=== PATIENT | female | born 1970 | race Hispanic/Latino ===

== ENCOUNTER 2023-01-16 19:04 | Emergency (ER) | payer OTHER, SELFPAY ==
[2023-01-16 19:29] VITALS: BP 118/76; PULSE 83; RESP 16; TEMP 36.4; O2SAT 98
--- NOTE | 2023-01-16 19:55 | ED.DENTAL ---
HPI - Dental/Oral General Chief complaint: Dental/Oral Stated complaint: Dental/Diabetic Problems Time Seen by Provider: 01/16/23 19:55 Source: patient Mode of arrival: ambulatory Limitations: no limitations History of Present Illness HPI Narrative: 52-year-old female presents with complaint of dental pain with eating. Called her primary care physician regarding symptoms and was told to have her teeth checked, might need antibiotic for infection. Patient reports she took an ibuprofen prior to arrival and pain has improved. States that she has not seen a dentist in several years. Patient is visiting here from out of town. All systems reviewed and negative except as noted above. Related Data Home Medications Medication Instructions Recorded Confirmed atorvastatin 20 mg tablet 20 mg PO DAILY 01/16/23 01/16/23 dulaglutide 1.5 mg/0.5 mL 1.5 mg subcut DIRECTED 01/16/23 01/16/23 subcutaneous pen injector (Trulicity) metformin 500 mg tablet,extended 500 mg PO BID 01/16/23 01/16/23 release 24 hr naproxen 500 mg tablet 500 mg PO DIRECTED 01/16/23 01/16/23 pantoprazole 40 mg tablet,delayed 40 mg PO DAILY 01/16/23 01/16/23 release Review of Systems Review of Systems: CONSTITUTIONAL: Denies fever, chills, or sweats. EYES: Denies visual changes, redness, or discharge. ENT: Denies rhinorrhea, congestion, sore throat, or otalgia. Reports dental pain. CARDIOVASCULAR: Denies chest pain, palpitations, or edema. RESPIRATORY: Denies cough or dyspnea. GASTROINTESTINAL: Denies abdominal pain, nausea, vomiting, or diarrhea. GENITOURINARY: Denies dysuria or hematuria. SKIN: Denies rash or itching. MUSCULOSKELETAL: Denies back pain, joint pain, or myalgia. NEUROLOGIC: Denies headache, numbness, or weakness. PSYCHIATRIC: Denies anxiety or depression. All other systems reviewed are negative, except as documented in HPI. PMFSH Comments At time of signature, agree with nursing past medical, surgical, social and family history. There is no relevant family history pertinent to the presenting complaint. Exam Narrative: GENERAL: This is a well-nourished, well-developed patient, in no apparent distress. HEAD: normocephalic, atraumatic. EYES: PERRL. Sclera clear/white. Vision is grossly intact. EARS: External ears normal NOSE: External nose normal MOUTH: several decayed teeth, broken teeth, dental caries NECK: Neck supple, non-tender without lymphadenopathy, masses or thyromegaly. CARDIOVASCULAR: Regular rate and rhythm without murmurs, gallops, or rubs. RESPIRATORY: Clear to auscultation. Breath sounds equal bilaterally. No wheezes, rales, or rhonchi. SKIN: warm, Dry, intact with no suspicious lesions or rash, good texture and turgor. NEURO: awake, alert, and oriented to person, place and time. There were no obvious focal neurologic abnormalities. EXTREMITIES: No joint tenderness, effusion, or edema noted. Course Course Level of Care: Express Care Visit Vital Signs Vital signs: Vital Signs Temperature 36.4 C 01/16/23 19:29 Pulse Rate 83 01/16/23 19:29 Respiratory Rate 16 01/16/23 19:29 Blood Pressure 118/76 01/16/23 19:29 Pulse Oximetry 98 01/16/23 19:29 Oxygen Delivery Room Air 01/16/23 19:29 Temperature 36.4 C 01/16/23 19:29 Pulse Rate 83 01/16/23 19:29 Respiratory Rate 16 01/16/23 19:29 Blood Pressure 118/76 01/16/23 19:29 Pulse Oximetry 98 01/16/23 19:29 Oxygen Delivery Room Air 01/16/23 19:29 Reviewed MDM - Dental/Oral MDM Narrative Medical decision making narrative: Patient is aware of diagnosis, understands and agrees to treatment plan. Anticipatory guidance given. Patient agrees to follow-up as directed and is aware of reasons to seek care at the emergency department. Portions of this record may have been created with voice recognition software Differential Diagnosis Differential diagnosis: Likely dental caries and toothache Dischar
== END 2023-01-16 19:55 | disposition home or self-care (01) ==
PROVIDERS: Emergency Provider Nurse Practitioner Family
DX: K02.9 Dental caries, unspecified (principal); E78.00 Pure hypercholesterolemia, unspecified; I10 Essential (primary) hypertension; E11.9 Type 2 diabetes mellitus without complications
CPT/HCPCS: 99203; G0463